=== PATIENT | female | born 1950 | race African-American/Black ===

== ENCOUNTER 2025-08-20 12:56 | Emergency (ER) | payer BC, MEDICARE ==
[~2025-08-20] VITALS: Ht 170.2 cm; Wt 57.0 kg
[~2025-08-20 12:56] MED LIST: LEVO125T8 MT
[2025-08-20 13:14] VITALS: BP 125/84; PULSE 91; RESP 18; TEMP 36.7; O2SAT 100
[2025-08-20] MEDS ORDERED: LEVO125T8 MT (13:54)
== END 2025-08-20 14:35 | disposition home or self-care (01) ==
LOC: ER 13:56
DX: E03.9 Hypothyroidism, unspecified (principal); Z76.0 Encounter for issue of repeat prescription; Z79.890 Hormone replacement therapy
CPT/HCPCS: 99282